=== PATIENT | male | born 1950 | race Caucasian/White ===

== ENCOUNTER 2022-05-28 19:59 | Inpatient (IN) | payer MEDICARE ==
[~2022-05-28 19:59] MED LIST: Iopamidol 370 76% 100 ML VIAL ONE
[2022-05-28] MEDS ORDERED: Furosemide 40 MG/4 ML VIAL SLOW IVP SCH (21:30)
[2022-05-28] MEDS ORDERED: Dextrose 50% Abboject 50 ML SYRINGE SLOW IVP PRN (21:42)
[2022-05-28] MEDS ORDERED: Dextrose 5% in Water 1,000 ML IV PRN (21:42)
[2022-05-28] MEDS ORDERED: Arformoterol 15 MCG/2 ML NEB NEB SCH (21:45)
[2022-05-28] MEDS ORDERED: Apixaban 5 MG TAB PO SCH ×2 (21:45)
[2022-05-28 22:02] LABS: ALV-art Gradient 68.385 mmHg (0-20); Base Excess (BEa) -1.4 mEq/L (-2.0 to +3.0); CO2 Tension 43.5 mmHg (35.0-45.0); Calcium, Ionized (arterial) 1.15 mmol/L (1.12-1.30); Carboxyhemoglobin (COHb) 0.3 gm% (0.0-3.0); Hemoglobin (Hb) 10.1 g/dL (14.0-18.0); O2 Tension (PaO2), arterial 105.4 mmHg (> 70.0); Potassium - ABG Lab 4.7 mmol/L (3.70-5.30); Puncture Site RRA; pH, Arterial 7.36 (7.35-7.45)
[2022-05-28] MEDS: Ipratropium/Albuterol 3 ML NEB NEB SCH (22:03)
[2022-05-28 22:21] LABS: Magnesium 2.4 mg/dL (1.6-2.6)
[2022-05-28 22:27] LABS: Troponin I Less than 0.010 ng/mL (< 0.028)
[2022-05-28] MEDS: Doxycycline 100 MG in Sodium Chloride 0.9% 100 ML IVPB SCH (22:47)
[2022-05-28 23:15] VITALS: BMI 28.0
[2022-05-28] MEDS ORDERED: carBAMazepine 200 MG TAB PO SCH (23:30)
[2022-05-28] MEDS ORDERED: Zonisamide 100 MG CAP PO SCH (23:30)
[2022-05-28] MEDS: cefTRIAXone\\ROCEPHIN 2 GM in Sodium Chloride 0.9% 100 ML IVPB SCH (23:59)
[2022-05-29] MEDS: Ipratropium/Albuterol 3 ML NEB NEB SCH ×5 (01:27→19:27)
[2022-05-29 04:29] LABS: Mean Corpuscular HGB CONC 32.5 g/dL (32.0-36.0); Mean Corpuscular Hemoglobin 38.2 pg (27.0-33.0); Mean Corpuscular Volume 117.6 fl (81.2-95.1); Mean Platelet Volume 9.8 fl (7.4-10.4); Platelet Count 152 10x3/uL (150-450); RBC Distribution Width 15.5 % (11.5-14.5); Red Blood Cell (RBC) Count 2.62 10x6/uL (4.32-5.72); White Blood Cell (WBC) Count 8.2 10x3/uL (3.5-10.5)
[2022-05-29 04:41] LABS: Anion Gap 18 mmol/L (10-20); BUN (Urea Nitrogen) 19 mg/dL (8.4-25.7); Calc. Creatinine Clearance 64 mL/min (70-130); Calcium 9.2 mg/dL (7.8-10.44); Carbon Dioxide 23 mmol/L (23-31); Cardiac Risk 2.1 (Less than 4.5); Chloride 103 mmol/L (98-107); Cholesterol 139 mg/dl (< 200 Desired); Estimated GFR 59; Glucose 197 mg/dL (80-115); HDL Cholesterol 65 mg/dL (>60 Neg Risk); LDL Cholesterol, Calculated 63 mg/dL; Potassium 4.6 mmol/L (3.5-5.1); Sodium 139 mmol/L (136-145); Triglycerides 57 mg/dL (Less than 150)
[2022-05-29 04:45] LABS: MDiff Complete? YES
[2022-05-29 04:48] LABS: Band 28 % (5-11); Neutrophil 57 % (42-75); Reactive Lymphocytes 1 % (0-10)
[2022-05-29 04:49] LABS: Lymphocytes 8 % (21-51); Monocytes 6 % (0-10)
[2022-05-29 04:51] LABS: Macrocytosis SLIGHT = 6-15 cells (100X) (0-5/hpf); Ovalocytes MODERATE= 6-15 cells (100X) (0-1/hpf); Platelet Morphology Comment Appears Adequate; Tear Drops SLIGHT = 2-5 cells (100X) (0-1/hpf)
[2022-05-29] MEDS: methylPREDNISolone Sod Succ 40 MG VIAL IVP SCH ×5 (06:40→23:40)
[2022-05-29] MEDS: Budesonide 0.5 MG/2 ML NEB NEB SCH ×2 (07:05→19:30)
[2022-05-29] MEDS: Arformoterol 15 MCG/2 ML NEB NEB SCH ×2 (07:10→19:39)
[2022-05-29] MEDS: Zonisamide 100 MG CAP PO SCH ×2 (09:35→21:36)
[2022-05-29] MEDS: Multivitamin W/ Minerals 1 TAB PO SCH (09:36)
[2022-05-29] MEDS: Apixaban 5 MG TAB PO SCH ×2 (09:36→21:37)
[2022-05-29] MEDS: Folic Acid 1 MG TAB PO SCH (09:36)
[2022-05-29] MEDS: Ezetimibe 10 MG TAB PO SCH (09:36)
[2022-05-29] MEDS: carBAMazepine 200 MG TAB PO SCH ×2 (09:36→21:36)
[2022-05-29] MEDS: Potassium Chloride 20 MEQ TAB PO SCH (09:37)
[2022-05-29] MEDS: Empagliflozin 10 MG TAB PO SCH (09:37)
[2022-05-29] MEDS: Spironolactone 25 MG TAB PO SCH (09:37)
[2022-05-29] MEDS: Cyanocobalamin (Vitamin B-12) 1,000 MCG TAB PO SCH (09:38)
[2022-05-29] MEDS: Dronedarone HCl 400 MG TAB PO SCH ×2 (09:38→17:09)
[2022-05-29] MEDS: Aspirin 81 mg Enteric Coated Tablet PO SCH (11:49)
[2022-05-29] MEDS: Doxycycline 100 MG in Sodium Chloride 0.9% 100 ML IVPB SCH ×2 (11:49→21:35)
[2022-05-29] MEDS: HumaLOG 300 UNITS/3 ML VIAL SC PRN ×3 (11:50→21:48)
[2022-05-29 12:29] LABS: Hemoglobin A1c 6.4 % (4.0-6.0)
[2022-05-29] MEDS: Atorvastatin Calcium 40 MG TAB PO SCH (21:36)
[2022-05-29] MEDS: rOPINIRole HCl 2 MG TAB PO SCH (21:36)
[2022-05-29] MEDS: Gabapentin 100 MG CAP PO SCH (21:41)
[2022-05-29] MEDS: cefTRIAXone\\ROCEPHIN 2 GM in Sodium Chloride 0.9% 100 ML IVPB SCH (23:39)
[2022-05-30] MEDS: Ipratropium/Albuterol 3 ML NEB NEB SCH ×7 (00:13→22:30)
[2022-05-30 04:02] LABS: #Monocytes 0.4 10x3/uL (0.0-1.1); #Neutrophils 3.8 10x3/uL (1.5-8.4); %Basophils 0.4 % (0.0-2.0); %Lymphocytes 22.3 % (18.0-47.0); %Monocytes 7.2 % (0.0-10.0); %Neutrophils 69.5 % (40.0-75.0); Anion Gap 14 mmol/L (10-20); BUN (Urea Nitrogen) 26 mg/dL (8.4-25.7); Calc. Creatinine Clearance 70 mL/min (70-130); Calcium 8.8 mg/dL (7.8-10.44); Carbon Dioxide 21 mmol/L (23-31); Chloride 107 mmol/L (98-107); Estimated GFR 66; Glucose 192 mg/dL (80-115); Hemoglobin 9.4 g/dL (13.5-17.5); Mean Corpuscular HGB CONC 32.3 g/dL (32.0-36.0); Mean Corpuscular Hemoglobin 37.5 pg (27.0-33.0); Mean Corpuscular Volume 115.9 fl (81.2-95.1); Mean Platelet Volume 10.4 fl (7.4-10.4); Platelet Count 134 10x3/uL (150-450); Potassium 4.4 mmol/L (3.5-5.1); RBC Distribution Width 15.3 % (11.5-14.5); Red Blood Cell (RBC) Count 2.51 10x6/uL (4.32-5.72); Sodium 138 mmol/L (136-145); White Blood Cell (WBC) Count 5.4 10x3/uL (3.5-10.5)
[2022-05-30] MEDS: methylPREDNISolone Sod Succ 40 MG VIAL IVP SCH ×3 (05:19→18:03)
[2022-05-30] MEDS: HumaLOG 300 UNITS/3 ML VIAL SC PRN ×4 (05:44→21:00)
[2022-05-30 06:12] LABS: Macrocytosis SLIGHT = 6-15 cells (100X) (0-5/hpf); Ovalocytes SLIGHT = 2-5 cells (100X) (0-1/hpf); Platelet Morphology Comment Appears Decreased; Tear Drops SLIGHT = 2-5 cells (100X) (0-1/hpf)
[2022-05-30] MEDS: Budesonide 0.5 MG/2 ML NEB NEB SCH ×2 (07:10→19:15)
[2022-05-30] MEDS: Arformoterol 15 MCG/2 ML NEB NEB SCH ×2 (07:15→19:20)
[2022-05-30] MEDS: Potassium Chloride 20 MEQ TAB PO SCH (09:12)
[2022-05-30] MEDS: Cyanocobalamin (Vitamin B-12) 1,000 MCG TAB PO SCH (09:12)
[2022-05-30] MEDS: Apixaban 5 MG TAB PO SCH ×2 (09:12→20:59)
[2022-05-30] MEDS: Aspirin 81 mg Enteric Coated Tablet PO SCH (09:12)
[2022-05-30] MEDS: carBAMazepine 200 MG TAB PO SCH ×2 (09:12→21:26)
[2022-05-30] MEDS: Empagliflozin 10 MG TAB PO SCH (09:12)
[2022-05-30] MEDS: Doxycycline 100 MG in Sodium Chloride 0.9% 100 ML IVPB SCH ×2 (09:13→21:00)
[2022-05-30] MEDS: Multivitamin W/ Minerals 1 TAB PO SCH (09:13)
[2022-05-30] MEDS: Dronedarone HCl 400 MG TAB PO SCH ×2 (09:13→18:03)
[2022-05-30] MEDS: Ezetimibe 10 MG TAB PO SCH (09:13)
[2022-05-30] MEDS: Spironolactone 25 MG TAB PO SCH (09:13)
[2022-05-30] MEDS: Folic Acid 1 MG TAB PO SCH (09:13)
[2022-05-30] MEDS: Furosemide 40 MG/4 ML VIAL SLOW IVP SCH (09:30)
[2022-05-30] MEDS: Zonisamide 100 MG CAP PO SCH ×2 (09:46→20:58)
[2022-05-30] MEDS: Gabapentin 100 MG CAP PO SCH (20:58)
[2022-05-30] MEDS: rOPINIRole HCl 2 MG TAB PO SCH (20:59)
[2022-05-30] MEDS: Atorvastatin Calcium 40 MG TAB PO SCH (20:59)
[2022-05-30] MEDS: cefTRIAXone\\ROCEPHIN 2 GM in Sodium Chloride 0.9% 100 ML IVPB SCH (23:21)
[2022-05-31] MEDS: methylPREDNISolone Sod Succ 40 MG VIAL IVP SCH ×5 (00:12→23:17)
[2022-05-31] MEDS: Ipratropium/Albuterol 3 ML NEB NEB SCH ×6 (01:50→23:33)
[2022-05-31] MEDS: HumaLOG 300 UNITS/3 ML VIAL SC PRN ×4 (05:27→20:49)
[2022-05-31] MEDS: Budesonide 0.5 MG/2 ML NEB NEB SCH ×2 (06:50→19:55)
[2022-05-31] MEDS: Arformoterol 15 MCG/2 ML NEB NEB SCH ×2 (06:55→19:44)
[2022-05-31] MEDS: carBAMazepine 200 MG TAB PO SCH ×2 (09:31→20:46)
[2022-05-31] MEDS: Spironolactone 25 MG TAB PO SCH (09:31)
[2022-05-31] MEDS: Folic Acid 1 MG TAB PO SCH (09:31)
[2022-05-31] MEDS: Doxycycline 100 MG in Sodium Chloride 0.9% 100 ML IVPB SCH ×2 (09:31→21:16)
[2022-05-31] MEDS: Zonisamide 100 MG CAP PO SCH ×2 (09:32→20:45)
[2022-05-31] MEDS: Aspirin 81 mg Enteric Coated Tablet PO SCH (09:32)
[2022-05-31] MEDS: Dronedarone HCl 400 MG TAB PO SCH ×2 (09:32→16:52)
[2022-05-31] MEDS: Empagliflozin 10 MG TAB PO SCH (09:32)
[2022-05-31] MEDS: Cyanocobalamin (Vitamin B-12) 1,000 MCG TAB PO SCH (09:32)
[2022-05-31] MEDS: Multivitamin W/ Minerals 1 TAB PO SCH (09:33)
[2022-05-31] MEDS: Ezetimibe 10 MG TAB PO SCH (09:33)
[2022-05-31] MEDS: Apixaban 5 MG TAB PO SCH ×2 (09:33→20:45)
[2022-05-31] MEDS: Furosemide 40 MG/4 ML VIAL SLOW IVP SCH (09:33)
[2022-05-31] MEDS: Potassium Chloride 20 MEQ TAB PO SCH (09:35)
[2022-05-31] MEDS: metFORMIN 500 MG TAB PO SCH (16:51)
[2022-05-31] MEDS: rOPINIRole HCl 2 MG TAB PO SCH (20:45)
[2022-05-31] MEDS: Gabapentin 100 MG CAP PO SCH (20:45)
[2022-05-31] MEDS: Atorvastatin Calcium 40 MG TAB PO SCH (20:46)
[2022-05-31] MEDS: cefTRIAXone\\ROCEPHIN 2 GM in Sodium Chloride 0.9% 100 ML IVPB SCH (23:15)
[2022-06-01] MEDS: Ipratropium/Albuterol 3 ML NEB NEB SCH ×2 (03:33→07:10)
[2022-06-01] MEDS: methylPREDNISolone Sod Succ 40 MG VIAL IVP SCH (05:32)
[2022-06-01] MEDS: HumaLOG 300 UNITS/3 ML VIAL SC PRN (06:10)
[2022-06-01] MEDS: Budesonide 0.5 MG/2 ML NEB NEB SCH (07:15)
[2022-06-01] MEDS: Arformoterol 15 MCG/2 ML NEB NEB SCH (07:25)
[2022-06-01] MEDS: metFORMIN 500 MG TAB PO SCH (08:26)
[2022-06-01] MEDS: carBAMazepine 200 MG TAB PO SCH (08:26)
[2022-06-01] MEDS: Aspirin 81 mg Enteric Coated Tablet PO SCH (08:26)
[2022-06-01] MEDS: Multivitamin W/ Minerals 1 TAB PO SCH (08:26)
[2022-06-01] MEDS: Apixaban 5 MG TAB PO SCH (08:26)
[2022-06-01] MEDS: Ezetimibe 10 MG TAB PO SCH (08:26)
[2022-06-01] MEDS: Potassium Chloride 20 MEQ TAB PO SCH (08:26)
[2022-06-01] MEDS: Dronedarone HCl 400 MG TAB PO SCH (08:26)
[2022-06-01] MEDS: Folic Acid 1 MG TAB PO SCH (08:27)
[2022-06-01] MEDS: Spironolactone 25 MG TAB PO SCH (08:27)
[2022-06-01] MEDS: Zonisamide 100 MG CAP PO SCH (08:27)
[2022-06-01] MEDS: Furosemide 40 MG/4 ML VIAL SLOW IVP SCH (08:27)
[2022-06-01] MEDS: Empagliflozin 10 MG TAB PO SCH (08:28)
[2022-06-01] MEDS: Cyanocobalamin (Vitamin B-12) 1,000 MCG TAB PO SCH (08:31)
[2022-06-01 09:02] VITALS: BP 141/62; TEMP 98.4
[2022-06-01] MEDS: Doxycycline 100 MG in Sodium Chloride 0.9% 100 ML IVPB SCH (09:53)
== END 2022-06-01 10:35 | disposition home or self-care (01) | DRG 189 ==
LOC: CSHTELE 19:59
PROVIDERS: ADMIT Student in an Organized Health Care Education/Training Program; ATTEND Family Medicine
DX: J96.01 Acute respiratory failure with hypoxia (principal); J44.1 Chronic obstructive pulmonary disease with (acute) exacerbation; I13.0 Hypertensive heart and chronic kidney disease with heart failure and stage 1 through stage 4 chronic kidney disease, or unspecified chronic kidney disease; I50.32 Chronic diastolic (congestive) heart failure; I48.0 Paroxysmal atrial fibrillation; E78.5 Hyperlipidemia, unspecified; N18.30 Chronic kidney disease, stage 3 unspecified; D63.1 Anemia in chronic kidney disease; D69.6 Thrombocytopenia, unspecified; I25.10 Atherosclerotic heart disease of native coronary artery without angina pectoris; R73.9 Hyperglycemia, unspecified; G40.909 Epilepsy, unspecified, not intractable, without status epilepticus; Z88.8 Allergy status to other drugs, medicaments and biological substances; Z79.01 Long term (current) use of anticoagulants; I25.2 Old myocardial infarction; Z87.891 Personal history of nicotine dependence; Z79.899 Other long term (current) drug therapy; Z79.82 Long term (current) use of aspirin; Z79.52 Long term (current) use of systemic steroids; Z90.49 Acquired absence of other specified parts of digestive tract; Z90.89 Acquired absence of other organs; Z80.9 Family history of malignant neoplasm, unspecified; Z82.5 Family history of asthma and other chronic lower respiratory diseases
CPT/HCPCS: 36415; 36416; 36600; 71275; 80048; 80061; 82607; 82805; 83036; 83735; 83880; 85025; 87070; 87205; 93005; 93010; 93306; 94640; 94760; J0696; J1815; J1940; J2920; J3490; J7620; J7626; Q9967

== ENCOUNTER 2023-01-22 00:07 | Inpatient (IN) | payer MEDICARE ==
[2023-01-22] MEDS ORDERED: Nitroglycerin 2% Ointment 1 INCH/1 GM Packet ONE (00:26)
[2023-01-22] MEDS ORDERED: Magnesium 2 GM/50 ML BAG (IN WATER) ONE (00:27)
[2023-01-22] MEDS ORDERED: Ipratropium/Albuterol 3 ML NEB ONE (00:28)
[2023-01-22 00:48] LABS: #Monocytes 0.8 10x3/uL (0.0-1.1); #Neutrophils 7.4 10x3/uL (1.5-8.4); %Basophils 0.3 % (0.0-2.0); %Eosinophils 0.3 % (0.0-6.0); %Lymphocytes 7.2 % (18.0-47.0); %Monocytes 8.6 % (0.0-10.0); %Neutrophils 82.8 % (40.0-75.0); Hematocrit 25.6 % (38.8-50.0); Mean Corpuscular HGB CONC 31.3 g/dL (32.0-36.0); Mean Corpuscular Hemoglobin 36.7 pg (27.0-33.0); Mean Corpuscular Volume 117.4 fl (81.2-95.1); Mean Platelet Volume 11.1 fl (7.4-10.4); Platelet Count 146 10x3/uL (150-450); RBC Distribution Width 17.1 % (11.5-14.5); Red Blood Cell (RBC) Count 2.18 10x6/uL (4.32-5.72); White Blood Cell (WBC) Count 8.9 10x3/uL (3.5-10.5)
[2023-01-22 00:49] LABS: Actual Bicarbonate (HCO3v) 28.7 mEq/L (22-28); Base Excess 0.8 mEq/L (-2 - +2); Calcium, Ionized (venous) 1.23 mmol/L (1.16-1.32); Chloride (VBG) 92 mmol/L (98-106); Hematocrit-VBG 26 % (42.0-52.0); Hemoglobin (Hb) 8.7 g/dL (12.6-17.4); Potassium (VBG) 4.39 mmol/L (3.70-5.30); Puncture Site Other Site; Sodium 130.5 mmol/L (133-146); pH (venous) 7.247 (7.32-7.43)
[2023-01-22] MEDS ORDERED: Cefepime 2 GM VIAL ONE (01:03)
[2023-01-22 01:06] LABS: ALT (SGPT) 78 U/L (8-55); AST (SGOT) 39 U/L (5-34); Alkaline Phosphatase 60 U/L (40-110); Anion Gap 17 mmol/L (10-20); BUN (Urea Nitrogen) 19 mg/dL (8.4-25.7); Bilirubin, Total 0.5 mg/dL (0.2-1.2); Calc. Creatinine Clearance 0 mL/min (70-130); Calcium 8.3 mg/dL (7.8-10.44); Carbon Dioxide 29 mmol/L (23-31); Chloride 94 mmol/L (98-107); Estimated GFR 56; Globulin 3.1 g/dL (2.4-3.5); Glucose 175 mg/dL (80-115); Potassium 4.9 mmol/L (3.5-5.1); Protein, Total 7.1 g/dL (5.8-8.1); Sodium 135 mmol/L (136-145)
[2023-01-22 01:12] LABS: Troponin I 0.011 ng/mL (< 0.028)
[2023-01-22 01:14] LABS: Macrocytosis SLIGHT = 6-15 cells (100X) (0-5/hpf); Platelet Adequacy Comment Appears Decreased
[2023-01-22] MEDS ORDERED: Calcium Carbonate 500 MG ChewTAB PO PRN (02:06)
[2023-01-22] MEDS ORDERED: Acetaminophen 325 MG TAB PO PRN (02:06)
[2023-01-22] MEDS ORDERED: Senokot S 8.6-50 MG TAB PO PRN (02:06)
[2023-01-22] MEDS ORDERED: Ondansetron PF 4 MG/2 ML Vial IVP PRN (02:06)
[2023-01-22] MEDS ORDERED: Guaifenesin DM 100-10/5 ML UDCUP PO PRN (02:06)
[2023-01-22] MEDS ORDERED: Dextrose 50% Abboject 50 ML SYRINGE SLOW IVP PRN (02:17)
[2023-01-22] MEDS ORDERED: Glucagon 1 MG/ML KIT IM PRN (02:17)
[2023-01-22] MEDS ORDERED: Dextrose 5% in Water 1,000 ML IV PRN (02:17)
[2023-01-22] MEDS ORDERED: Furosemide 100 MG/10 ML VIAL SLOW IVP SCH (02:30)
[2023-01-22 03:00] VITALS: BMI 36.3
[2023-01-22] MEDS: Ipratropium/Albuterol 3 ML NEB NEB SCH ×6 (03:15→22:40)
[2023-01-22] MEDS ORDERED: Enoxaparin 120 MG/0.8 ML SYRINGE SC SCH (03:15)
[2023-01-22 03:28] LABS: Bilirubin Neg (Negative); Blood, Urine 25 (Negative); Clarity Clear (Clear); Glucose, Urine (Dipstick) 250 mg/dL (Negative); Ketone, Urine Negative (Negative); Leukocyte Negative (Negative); Nitrite Negative (Negative); Protein, Urine (Dipstick) 100 mg/dl (Neg-Trace); Urobilinogen Normal mg/dL (Less than 2)
[2023-01-22 03:36] LABS: Bacteria/HPF None Seen HPF (None Seen); RBC/HPF 0-3 HPF (0-3); Squamous Epithelial None Seen HPF (0-3); WBC/HPF 0-3 HPF (0-3)
[2023-01-22 03:40] LABS: Actual Bicarbonate (HCO3v) 29.5 mEq/L (22-28); Calcium, Ionized (venous) 1.07 mmol/L (1.16-1.32); Chloride (VBG) 95 mmol/L (98-106); Hematocrit-VBG 27 % (42.0-52.0); Hemoglobin (Hb) 9.1 g/dL (12.6-17.4); Potassium (VBG) 4.66 mmol/L (3.70-5.30); Puncture Site Other Site; RapidComm Collect By CBL; Sodium 134.4 mmol/L (133-146); pH (venous) 7.282 (7.32-7.43)
[2023-01-22 03:53] LABS: Legionella Urinary Ag Negative (Negative); Strep pneumo Urine Ag NEGATIVE (NEGATIVE)
[2023-01-22] MEDS ORDERED: VANCOMYCIN 2 GRAM/400 ML BAG 2 GM in Premix Bag 1 BAG IVPB SCH (04:00)
[2023-01-22 04:01] LABS: SARS-CoV-2 NAA Rapid Test Not Detected (NotDetected)
[2023-01-22 04:10] LABS: Anion Gap 17 mmol/L (10-20); BUN (Urea Nitrogen) 19 mg/dL (8.4-25.7); Calc. Creatinine Clearance 93 mL/min (70-130); Calcium 8.6 mg/dL (7.8-10.44); Carbon Dioxide 28 mmol/L (23-31); Chloride 96 mmol/L (98-107); Estimated GFR 61; Glucose 189 mg/dL (80-115); Potassium 4.7 mmol/L (3.5-5.1); Sodium 136 mmol/L (136-145)
[2023-01-22 04:13] LABS: #Monocytes 0.3 10x3/uL (0.0-1.1); %Basophils 0.2 % (0.0-2.0); %Lymphocytes 6.8 % (18.0-47.0); %Monocytes 3.7 % (0.0-10.0); %Neutrophils 88.2 % (40.0-75.0); Hematocrit 26.4 % (38.8-50.0); Hemoglobin 8.1 g/dL (13.5-17.5); Mean Corpuscular HGB CONC 30.7 g/dL (32.0-36.0); Mean Corpuscular Hemoglobin 36.2 pg (27.0-33.0); Mean Corpuscular Volume 117.9 fl (81.2-95.1); Mean Platelet Volume 10.8 fl (7.4-10.4); Platelet Count 133 10x3/uL (150-450); RBC Distribution Width 16.9 % (11.5-14.5); Red Blood Cell (RBC) Count 2.24 10x6/uL (4.32-5.72); White Blood Cell (WBC) Count 9.1 10x3/uL (3.5-10.5)
[2023-01-22 04:48] LABS: Macrocytosis SLIGHT = 6-15 cells (100X) (0-5/hpf); Platelet Adequacy Comment Appears Decreased
[2023-01-22] MEDS: methylPREDNISolone Sod Succ 40 MG VIAL IVP SCH ×4 (05:32→23:51)
[2023-01-22] MEDS: HumaLOG 300 UNITS/3 ML VIAL SC PRN ×3 (06:21→18:13)
[2023-01-22] MEDS: Mometasone/Formoterol 200/5 60 PUFF INH SCH ×2 (08:15→19:00)
[2023-01-22] MEDS: Dronedarone HCl 400 MG TAB PO SCH ×2 (08:34→17:22)
[2023-01-22] MEDS: metFORMIN 500 MG TAB PO SCH ×2 (08:34→17:20)
[2023-01-22] MEDS: Amlodipine 5 MG TAB PO SCH (08:34)
[2023-01-22] MEDS: Benzonatate 100 MG CAP PO SCH ×3 (08:35→20:40)
[2023-01-22] MEDS: carBAMazepine 200 MG TAB PO SCH ×2 (08:35→20:40)
[2023-01-22] MEDS: Zonisamide 100 MG CAP PO SCH ×2 (08:36→20:42)
[2023-01-22] MEDS: Empagliflozin 10 MG TAB PO SCH (08:37)
[2023-01-22] MEDS: Enoxaparin 120 MG/0.8 ML SYRINGE SC SCH ×2 (08:37→20:40)
[2023-01-22] MEDS: Ezetimibe 10 MG TAB PO SCH (08:37)
[2023-01-22] MEDS: Folic Acid 1 MG TAB PO SCH (08:37)
[2023-01-22] MEDS: guaiFENesin ER 600 MG TAB PO SCH ×2 (08:38→20:39)
[2023-01-22] MEDS: Pantoprazole 40 MG VIAL IVP SCH (08:38)
[2023-01-22] MEDS ORDERED: Cefepime 1 GM in Sodium Chloride 0.9% 100 ML IVPB SCH (13:00)
[2023-01-22] MEDS: Furosemide 40 MG/4 ML VIAL SLOW IVP SCH (13:19)
[2023-01-22 14:46] LABS: Troponin I 0.013 ng/mL (< 0.028)
[2023-01-22] MEDS: Gabapentin 300 MG CAP PO SCH ×2 (15:08→20:40)
[2023-01-22] MEDS: Atorvastatin Calcium 40 MG TAB PO SCH (20:40)
[2023-01-22] MEDS ORDERED: Gabapentin 100 MG CAP PO SCH (21:00)
[2023-01-23] MEDS: Ipratropium/Albuterol 3 ML NEB NEB SCH ×6 (02:44→22:25)
[2023-01-23 03:16] LABS: Actual Bicarbonate (HCO3v) 31.7 mEq/L (22-28); Base Excess 6.5 mEq/L (-2 - +2); Calcium, Ionized (venous) 1.01 mmol/L (1.16-1.32); Chloride (VBG) 93 mmol/L (98-106); Hematocrit-VBG 24 % (42.0-52.0); Potassium (VBG) 4.08 mmol/L (3.70-5.30); Puncture Site Other Site; RapidComm Collect By CBL; Sodium 131.2 mmol/L (133-146); pH (venous) 7.422 (7.32-7.43)
[2023-01-23 03:44] LABS: Hemoglobin 7.2 g/dL (13.5-17.5); Mean Corpuscular HGB CONC 31.3 g/dL (32.0-36.0); Mean Corpuscular Hemoglobin 35.8 pg (27.0-33.0); Mean Corpuscular Volume 114.4 fl (81.2-95.1); Mean Platelet Volume 10.5 fl (7.4-10.4); Platelet Count 130 10x3/uL (150-450); RBC Distribution Width 16.4 % (11.5-14.5); Red Blood Cell (RBC) Count 2.01 10x6/uL (4.32-5.72); White Blood Cell (WBC) Count 4.5 10x3/uL (3.5-10.5)
[2023-01-23 03:46] LABS: MDiff Complete? YES
[2023-01-23 03:53] LABS: ALT (SGPT) 50 U/L (8-55); AST (SGOT) 19 U/L (5-34); Albumin 3.7 g/dL (3.4-4.8); Alkaline Phosphatase 51 U/L (40-110); Anion Gap 17 mmol/L (10-20); BUN (Urea Nitrogen) 25 mg/dL (8.4-25.7); Bilirubin, Direct 0.2 mg/dL (0.1-0.3); Bilirubin, Total 0.4 mg/dL (0.2-1.2); Calc. Creatinine Clearance 96 mL/min (70-130); Calcium 8.4 mg/dL (7.8-10.44); Carbon Dioxide 27 mmol/L (23-31); Chloride 93 mmol/L (98-107); Estimated GFR 63; Glucose 189 mg/dL (80-115); Potassium 4.1 mmol/L (3.5-5.1); Protein, Total 6.5 g/dL (5.8-8.1); Sodium 133 mmol/L (136-145)
[2023-01-23 03:56] LABS: Troponin I 0.017 ng/mL (< 0.028)
[2023-01-23 05:24] LABS: Macrocytosis SLIGHT = 6-15 cells (100X) (0-5/hpf); Platelet Adequacy Comment Appears Decreased
[2023-01-23 05:28] LABS: Band 7 % (5-11); Lymphocytes 11 % (21-51); Monocytes 9 % (0-10); Neutrophil 73 % (42-75)
[2023-01-23] MEDS: Furosemide 40 MG/4 ML VIAL SLOW IVP SCH ×2 (06:11→13:50)
[2023-01-23] MEDS: methylPREDNISolone Sod Succ 40 MG VIAL IVP SCH ×2 (06:12→12:09)
[2023-01-23] MEDS: Mometasone/Formoterol 200/5 60 PUFF INH SCH ×2 (07:29→18:48)
[2023-01-23] MEDS: Enoxaparin 120 MG/0.8 ML SYRINGE SC SCH ×2 (08:06→21:12)
[2023-01-23] MEDS: Pantoprazole 40 MG VIAL IVP SCH (08:07)
[2023-01-23] MEDS: Folic Acid 1 MG TAB PO SCH (08:07)
[2023-01-23] MEDS: carBAMazepine 200 MG TAB PO SCH ×2 (08:07→21:14)
[2023-01-23] MEDS: Empagliflozin 10 MG TAB PO SCH (08:07)
[2023-01-23] MEDS: Gabapentin 300 MG CAP PO SCH ×3 (08:07→21:14)
[2023-01-23] MEDS: guaiFENesin ER 600 MG TAB PO SCH ×2 (08:07→21:14)
[2023-01-23] MEDS: metFORMIN 500 MG TAB PO SCH ×2 (08:07→16:49)
[2023-01-23] MEDS: Amlodipine 5 MG TAB PO SCH (08:08)
[2023-01-23] MEDS: Zonisamide 100 MG CAP PO SCH ×2 (08:08→21:18)
[2023-01-23] MEDS: Benzonatate 100 MG CAP PO SCH ×3 (08:08→21:13)
[2023-01-23] MEDS: Dronedarone HCl 400 MG TAB PO SCH ×2 (08:13→16:49)
[2023-01-23] MEDS: Ezetimibe 10 MG TAB PO SCH (08:38)
[2023-01-23 15:15] LABS: Hep C IgG Ab Non-Reactive S/CO (NonReactive)
[2023-01-23 15:16] LABS: HBCM Index 0.06 S/CO (0-0.79); Hep A IgM AB Non-Reactive S/CO (NonReactive); Hepatitis B Core IgM Abs Non-Reactive S/CO (NonReactive)
[2023-01-23 15:54] LABS: Hep B Surf Ag Non-Reactive S/CO (NonReactive)
[2023-01-23] MEDS ORDERED: rOPINIRole HCl 2 MG TAB PO SCH (21:00)
[2023-01-23] MEDS: Atorvastatin Calcium 40 MG TAB PO SCH (21:14)
[2023-01-24] MEDS: Ipratropium/Albuterol 3 ML NEB NEB SCH ×4 (03:15→15:15)
[2023-01-24 03:42] LABS: #Monocytes 0.5 10x3/uL (0.0-1.1); #Neutrophils 2.7 10x3/uL (1.5-8.4); %Basophils 0.7 % (0.0-2.0); %Eosinophils 0.9 % (0.0-6.0); %Lymphocytes 26.6 % (18.0-47.0); %Monocytes 11.5 % (0.0-10.0); %Neutrophils 59.2 % (40.0-75.0); Hemoglobin 7.4 g/dL (13.5-17.5); Mean Corpuscular HGB CONC 32.2 g/dL (32.0-36.0); Platelet Count 143 10x3/uL (150-450); White Blood Cell (WBC) Count 4.6 10x3/uL (3.5-10.5)
[2023-01-24 03:47] LABS: Anion Gap 14 mmol/L (10-20); BUN (Urea Nitrogen) 27 mg/dL (8.4-25.7); Calc. Creatinine Clearance 94 mL/min (70-130); Calcium 8.4 mg/dL (7.8-10.44); Carbon Dioxide 32 mmol/L (23-31); Chloride 94 mmol/L (98-107); Estimated GFR 68; Glucose 132 mg/dL (80-115); Magnesium 2.1 mg/dL (1.6-2.6); Potassium 3.5 mmol/L (3.5-5.1); Sodium 136 mmol/L (136-145)
[2023-01-24 04:33] LABS: Macrocytosis SLIGHT = 6-15 cells (100X) (0-5/hpf); Platelet Adequacy Comment Appears Decreased
[2023-01-24] MEDS: Furosemide 40 MG/4 ML VIAL SLOW IVP SCH (06:29)
[2023-01-24] MEDS: Mometasone/Formoterol 200/5 60 PUFF INH SCH (07:30)
[2023-01-24] MEDS ORDERED: predniSONE 20 MG TAB PO SCH (08:00)
[2023-01-24] MEDS ORDERED: Ziprasidone 20 MG CAP PO SCH ×2 (08:00→21:00)
[2023-01-24] MEDS: Amlodipine 5 MG TAB PO SCH (08:54)
[2023-01-24] MEDS: Folic Acid 1 MG TAB PO SCH (08:54)
[2023-01-24] MEDS: Enoxaparin 120 MG/0.8 ML SYRINGE SC SCH (08:54)
[2023-01-24] MEDS: carBAMazepine 200 MG TAB PO SCH (08:55)
[2023-01-24] MEDS: Benzonatate 100 MG CAP PO SCH ×2 (08:55→14:06)
[2023-01-24] MEDS: metFORMIN 500 MG TAB PO SCH (08:56)
[2023-01-24] MEDS: Gabapentin 300 MG CAP PO SCH ×2 (08:56→14:06)
[2023-01-24] MEDS: Empagliflozin 10 MG TAB PO SCH (08:56)
[2023-01-24] MEDS: Dronedarone HCl 400 MG TAB PO SCH (08:57)
[2023-01-24] MEDS: Zonisamide 100 MG CAP PO SCH (08:57)
[2023-01-24] MEDS: Ezetimibe 10 MG TAB PO SCH (08:57)
[2023-01-24] MEDS: guaiFENesin ER 600 MG TAB PO SCH (08:57)
[2023-01-24] MEDS ORDERED: Aspirin 81 mg Enteric Coated Tablet PO SCH (09:00)
[2023-01-24] MEDS ORDERED: Spironolactone 25 MG TAB PO SCH (10:00)
[2023-01-24] MEDS ORDERED: Furosemide 40 MG TAB PO SCH (14:00)
[2023-01-24 15:57] VITALS: BP 111/60; TEMP 98.5
[2023-01-25] MEDS ORDERED: Spironolactone 25 MG TAB PO SCH (08:00)
== END 2023-01-24 16:48 | disposition swing bed (61) | DRG 189 ==
LOC: CSHERS 00:07 → CSHICU 02:45 → CSHTELE 01-24 13:20
PROVIDERS: ADMIT Student in an Organized Health Care Education/Training Program; ATTEND Family Medicine
PROC: 4A133R1 Monitoring of Arterial Saturation, Peripheral, Percutaneous Approach (ICD-10-PCS; principal; 2023-01-22)
PROC: 5A09357 Assistance with Respiratory Ventilation, Less than 24 Consecutive Hours, Continuous Positive Airway Pressure (ICD-10-PCS; 2023-01-22)
DX: J96.21 Acute and chronic respiratory failure with hypoxia (principal); G93.41 Metabolic encephalopathy; I50.33 Acute on chronic diastolic (congestive) heart failure; I13.0 Hypertensive heart and chronic kidney disease with heart failure and stage 1 through stage 4 chronic kidney disease, or unspecified chronic kidney disease; C34.90 Malignant neoplasm of unspecified part of unspecified bronchus or lung; J44.1 Chronic obstructive pulmonary disease with (acute) exacerbation; J96.22 Acute and chronic respiratory failure with hypercapnia; E78.5 Hyperlipidemia, unspecified; I48.0 Paroxysmal atrial fibrillation; I25.10 Atherosclerotic heart disease of native coronary artery without angina pectoris; N18.2 Chronic kidney disease, stage 2 (mild); D63.1 Anemia in chronic kidney disease; E11.22 Type 2 diabetes mellitus with diabetic chronic kidney disease; E66.01 Morbid (severe) obesity due to excess calories; G40.909 Epilepsy, unspecified, not intractable, without status epilepticus; J44.9 Chronic obstructive pulmonary disease, unspecified; I27.20 Pulmonary hypertension, unspecified; Z79.899 Other long term (current) drug therapy; Z79.4 Long term (current) use of insulin; Z86.73 Personal history of transient ischemic attack (TIA), and cerebral infarction without residual deficits; Z79.84 Long term (current) use of oral hypoglycemic drugs; Z88.6 Allergy status to analgesic agent; Z79.01 Long term (current) use of anticoagulants; Z79.82 Long term (current) use of aspirin; Z79.52 Long term (current) use of systemic steroids; Z87.891 Personal history of nicotine dependence; Z99.81 Dependence on supplemental oxygen; I25.2 Old myocardial infarction; Z87.01 Personal history of pneumonia (recurrent); Z90.49 Acquired absence of other specified parts of digestive tract; Z20.822 Contact with and (suspected) exposure to COVID-19
CPT/HCPCS: 36415; 36416; 71045; 80048; 80053; 80074; 80076; 81001; 82805; 83735; 83880; 84145; 84443; 84484; 85025; 85379; 87040; 87081; 87449; 87899; 93005; 93306; 93970; 94640; 94660; 94664; 94760; 94762; 96374; 96375; C9113; J0692; J1650; J1815; J1940; J2920; J3370; J3475; J3490; J7620